=== PATIENT | female | born 1965 | race American Indian/Alaskan Native ===

== ENCOUNTER 2020-07-11 14:22 | Emergency (ER) | payer MEDICAID, OTHER ==
[2020-07-11 14:35] VITALS: BP 183/87
[2020-07-11] MEDS ORDERED: oxyCODONE /ACETAMINOPHEN 5-325MG TAB PO ONE (15:26)
--- NOTE | 2020-07-11 15:51 | Emergency Department Report ---
ED Fall HPI - General Chief Complaint: Fall Stated Complaint: FALL INJURY/PAIN Time Seen by Provider: 07/11/20 15:08 Source: patient Mode of arrival: Ambulatory - History of Present Illness Initial Comments: 55-year-old female she had a mechanical Fall at her daughter's home while going up steps yesterday. She fell onto her right hip and thigh. She denied any head injury she denies any loss of consciousness there were no dizziness prior to the fall she said she missed stepped and tripped and fell. Patient has has a history of osteoarthritis and is scheduled for knee replacement in August. She is complaining of right thigh and hip pain unrelieved with ibuprofen Fall From: standing Place Fall Occurred: home Loss of Consciousness: none Prolonged Down Time?: no Symptoms Prior to Fall: none Location: other (right hip and right thigh) Location - Extremities: Right: Thigh Severity: moderate Severity scale (0 -10): 8 Quality: aching Context: tripped/slipped Associated Symptoms: denies. denies: headache, neck pain, numbness, weakness, chest paint, shortness of breath, abdominal pain, hematuria, lightheaded, vertigo, confusion - Related Data Previous Rx's Medication Instructions Recorded Last Taken Type HYDROcodone/APAP 5-325 [[place] 1 each PO Q6HR PRN #15 tablet 07/11/20 Unknown Rx 5/325] Allergies Allergy/AdvReac Type Severity Reaction Status Date / Time No Known Allergies Allergy Unverified 07/11/20 14:33 ED Review of Systems ROS: Stated complaint: FALL INJURY/PAIN Other details as noted in HPI Comment: All other systems reviewed and negative Constitutional: denies: chills, fever Eyes: denies: eye pain, eye discharge ENT: denies: throat pain Respiratory: denies: shortness of breath, SOB with exertion Cardiovascular: denies: chest pain, palpitations, edema Gastrointestinal: denies: abdominal pain Genitourinary: denies: dysuria, hematuria Musculoskeletal: other (Right hip and thigh pain) Skin: other (Ecchymosis noted to the right lateral hip) Neurological: denies: headache, weakness, numbness, paresthesias, confusion Psychiatric: denies: anxiety, depression ED Past Medical Hx - Past Medical History Previous Medical History?: Yes Hx Diabetes: Yes Additional medical history: high cholesterol - Surgical History Past Surgical History?: Yes Additional Surgical History: x 4 - Social History Smoking Status: Current Every Day Smoker Substance Use Type: Alcohol - Medications Home Medications: Home Medications Medication Instructions Recorded Confirmed Last Taken Type HYDROcodone/APAP 5-325 [[place] 1 each PO Q6HR PRN #15 tablet 07/11/20 Unknown Rx 5/325] ED Physical Exam - General Limitations: No Limitations General appearance: alert, in no apparent distress - Head Head exam: Present: atraumatic - Eye Eye exam: Present: normal appearance - ENT ENT exam: Present: normal exam - Neck Neck exam: Present: normal inspection - Respiratory Respiratory exam: Present: normal lung sounds bilaterally. Absent: respiratory distress - Cardiovascular Cardiovascular Exam: Present: regular rate, normal heart sounds - GI/Abdominal GI/Abdominal exam: Present: soft - Extremities Exam Extremities exam: Present: tenderness (Right thigh and hip tenderness) - Back Exam Back exam: Present: normal inspection - Neurological Exam Neurological exam: Present: alert, oriented X3 - Psychiatric Psychiatric exam: Present: normal affect - Skin Skin exam: Present: warm, ecchymosis (Right lateral thigh) ED Course Vital Signs 07/11/20 07/11/20 07/11/20 14:35 15:48 16:48 Temperature 97.9 F Pulse Rate 81 Respiratory 16 18 18 Rate Blood Pressure 183/87 O2 Sat by Pulse 96 Oximetry ED Medical Decision Making - Radiology Data Radiology results: report reviewed interpreted by me: . BONES / JOINT(S): No acute fracture or subluxation. There is narrowing of the medial compartment of the knee joint. SOFT TISSUES: There is an effusion in the suprapatella bursa X-ray of the right hip and right thigh no with no acute findings no fractures or dislocation - Medical Decision Making 55-year-old female with a history of osteoarthritis of knees bilaterally had a mechanical fall at her daughter's home she had no head injury no neck or back pain. she fell onto her right side patient is ambulatory .x-rays of her right hip and right thigh rest ice elevate no fractures or dislocations. Discharge patient home follow-up with her primary care doctor . Critical Care Time: No Critical care attestation.: If time is entered above; I have spent that time in minutes in the direct care of this critically ill patient, excluding procedure time. ED Disposition Clinical Impression: Contusion of right hip and thigh Qualifiers: Encounter type: initial encounter Qualified Code(s): S70.01XA - Contusion of right hip, initial encounter Disposition: TO HOME OR SELFCARE Is pt being admited?: No Does the pt Need Aspirin: No Condition: Stable Instructions: How to Use Cold Therapy, [id number], Contusion, [id number] Additional Instructions: Rest cool compress for the next 2 days then apply warm compress Prescriptions: HYDROcodone/APAP 5-325 [[place] 5/325] 1 each PO Q6HR PRN #15 tablet PRN Reason: Pain Referrals: SAMI GURROLA MD [Staff Physician] - 3-5 Days Forms: Accompanied Note Time of Disposition: 17:18
--- NOTE | 2020-07-11 16:05 | XRay Report ---
RIGHT HIP RADIOGRAPHS 2 VIEWS INDICATION / CLINICAL INFORMATION: right hip pain s/p fall COMPARISON: None available. FINDINGS: BONES / JOINT(S): No acute fracture or subluxation. No significant arthritis. SOFT TISSUES: No significant abnormality. ADDITIONAL FINDINGS: None. Signer Name: Jaylon Elizabeth MD Signed: 07/11/2020 4:01 PM Workstation Name: [id number]
--- NOTE | 2020-07-11 16:08 | XRay Report ---
RIGHT FEMUR 2 VIEWS INDICATION / CLINICAL INFORMATION: s/p fall right femur pain COMPARISON: None available. FINDINGS: BONES / JOINT(S): No acute fracture or subluxation. There is narrowing of the medial compartment of t he knee joint. SOFT TISSUES: There is an effusion in the suprapatella bursa. ADDITIONAL FINDINGS: None. Signer Name: Jaylon Elizabeth MD Signed: 07/11/2020 4:03 PM Workstation Name: [id number]
== END 2020-07-11 17:38 | disposition home or self-care (01) ==
LOC: ED 14:22
DX: S70.01XA Contusion of right hip, initial encounter (principal); S70.11XA Contusion of right thigh, initial encounter; F17.200 Nicotine dependence, unspecified, uncomplicated; E11.9 Type 2 diabetes mellitus without complications; E78.00 Pure hypercholesterolemia, unspecified; Z98.890 Other specified postprocedural states; Z79.899 Other long term (current) drug therapy; W10.9XXA Fall (on) (from) unspecified stairs and steps, initial encounter; Y93.89 Activity, other specified; Y92.009 Unspecified place in unspecified non-institutional (private) residence as the place of occurrence of the external cause; Y99.8 Other external cause status